=== PATIENT | female | born 1960 | race Caucasian/White ===

== ENCOUNTER 2021-04-22 08:45 | Inpatient (IN) | payer OTHER ==
[2021-04-22] MEDS ORDERED: morphine CARPU-JECT 4 MG/1 ML DISP.SYRIN IVPUSH ONE (09:36)
[2021-04-22] MEDS ORDERED: SODIUM CHLORIDE 0.9% 500 ML INFUS.BAG IV ONE (09:44)
[2021-04-22] MEDS ORDERED: morphine SULFATE 4 MG/ML VIAL ONE ×2 (09:44→15:16)
[2021-04-22 10:16] LABS: BASO % 2.4 % (0-2.0); EOS % 0.1 % (0-4.5); HEMATOCRIT 42.7 % (32.4-45.2); HEMOGLOBIN 14.1 GM/dl (10.7-15.3); LYMPH % 5.5 % (8-40); MCH 29.7 pg (25.7-33.7); MCHC 33.2 g/dl (32.0-36.0); MEAN CELL VOLUME 89.6 fl (80-96); MEAN PLT VOLUME 7.9 fl (7.5-11.1); MONO % 5.4 % (3.8-10.2); NEUT % 86.6 % (42.8-82.8); PLATELET COUNT 254 10^3/uL (134-434); RBC 4.76 M/mm3 (3.60-5.2); RDW 12.4 % (11.6-15.6); WHITE BLOOD COUNT 13.8 K/mm3 (4.0-10.8)
[2021-04-22 10:22] LABS: ALBUMIN 3.9 g/dl (3.4-5.0); BILIRUBIN,TOTAL 1.5 mg/dl (0.2-1); CREATININE 0.8 mg/dl (0.55-1.3); MAGNESIUM 1.5 mg/dL (1.8-2.4); TOT PROT 7.5 g/dl (6.4-8.2)
[2021-04-22] MEDS ORDERED: ACETAMINOPHEN 1000 MG/100 ML VIAL IVPB ONE ×2 (10:26→18:38)
[2021-04-22] MEDS ORDERED: ACETAMINOPHEN INJECTION 100 ML IVPB ONE ×2 (10:27→18:43)
[2021-04-22 10:44] LABS: ACTIVATED PTT 29.3 SECONDS (25.2-36.5)
[2021-04-22 10:49] LABS: INR 1.23 (0.82-1.09); PROTHROMBIN TIME (PATIENT) 13.8 SEC (10.2-13.0)
[2021-04-22] MEDS ORDERED: PIPERACILLIN/TAZOB 4.5 GM 4.5 GM in DEXTROSE 5%-WATER 100 ML IVPB ONE (11:59)
[2021-04-22] MEDS ORDERED: PIPERACILLIN/TAZOBACTAM 4.5 GM VIAL IVPB ONE (12:04)
[2021-04-22] MEDS ORDERED: MAGNESIUM 1GM/D5W - 1 GM/100 ML IVPB IVPB ONE (12:04)
[2021-04-22] MEDS ORDERED: rOPINIRole HCL 1 MG TABLET (FP) PO ONE (13:38)
[2021-04-22] MEDS ORDERED: morphine CARPU-JECT 2 MG/1 ML DISP.SYRIN IVPUSH ONE (15:08)
[2021-04-22] MEDS: DEXTROSE 5%-0.45% SALINE 1,000 ML IV SCH (16:53)
[2021-04-22] MEDS ORDERED: PIPERACILLIN/TAZOB 3.375 GM 3.375 GM in DEXTROSE 5%-WATER - 50 ML IVPB SCH (18:00)
[2021-04-22] MEDS ORDERED: PIPERACILLIN/TAZOBACTAM 3.375 GM VIAL IVPB ONE (18:41)
[2021-04-22] MEDS: PIPERACILLIN/TAZOB 3.375 GM 3.375 GM in DEXTROSE 5%-WATER - 50 ML IVPB SCH (18:57)
[2021-04-23 00:08] VITALS: BMI 31.3
[2021-04-23] MEDS: DEXTROSE 5%-0.45% SALINE 1,000 ML IV SCH ×2 (00:27→20:08)
[2021-04-23] MEDS ORDERED: ACETAMINOPHEN 1000 MG/100 ML VIAL IVPB ONE (00:42)
[2021-04-23] MEDS ORDERED: PIPERACILLIN/TAZOBACTAM 3.375 GM VIAL IVPB ONE ×3 (00:53→17:02)
[2021-04-23] MEDS ORDERED: DEXTROSE 5%-WATER - 50 ML IVPB ONE ×3 (00:54→17:02)
[2021-04-23] MEDS: PIPERACILLIN/TAZOB 3.375 GM 3.375 GM in DEXTROSE 5%-WATER - 50 ML IVPB SCH ×3 (00:59→17:08)
[2021-04-23] MEDS ORDERED: rOPINIRole HCL 3 MG TABLET PO ONE (02:53)
[2021-04-23] MEDS ORDERED: morphine SULFATE 4 MG/ML VIAL IVPUSH PRN (07:54)
[2021-04-23 08:50] LABS: BASO % 0.3 % (0-2.0); EOS % 0.8 % (0-4.5); HEMATOCRIT 36.7 % (32.4-45.2); HEMOGLOBIN 12.6 GM/dL (10.7-15.3); LYMPH % 5.1 % (8-40); MCH 29.9 pg (25.7-33.7); MCHC 34.3 g/dl (32.0-36.0); MEAN CELL VOLUME 86.9 fl (80-96); MEAN PLT VOLUME 7.5 fl (7.5-11.1); MONO % 5.7 % (3.8-10.2); NEUT % 88.1 % (42.8-82.8); PLATELET COUNT 198 10^3/uL (134-434); RBC 4.22 M/mm3 (3.60-5.2); WHITE BLOOD COUNT 15.4 K/mm3 (4.0-10.0)
[2021-04-23 08:56] LABS: INR 1.56 (0.83-1.09); PROTHROMBIN TIME (PATIENT) 17.5 SEC (9.7-13.0)
[2021-04-23 09:19] LABS: CALCIUM 7.6 mg/dL (8.5-10.1)
[2021-04-23 09:20] LABS: BLOOD UREA NITROGEN 9.8 mg/dL (7-18); MAGNESIUM 1.7 mg/dL (1.8-2.4)
[2021-04-23 09:22] LABS: CREATININE 0.6 mg/dL (0.55-1.3)
[2021-04-23 09:24] LABS: BILIRUBIN,TOTAL 1.3 mg/dL (0.2-1); TOT PROT 6.2 g/dl (6.4-8.2)
[2021-04-23 09:33] LABS: ALBUMIN 2.6 g/dl (3.4-5.0)
[2021-04-23] MEDS: ONDANSETRON 4 MG/2 ML VIAL IVPUSH PRN (09:58)
[2021-04-23] MEDS ORDERED: HEPARIN NA (PORCINE) 5,000 UNITS/ML 1ML VIAL SQ SCH (10:00)
[2021-04-23] MEDS ORDERED: MAGNESIUM SULF 50% (8.12 MEQ/2 ML-1 GM VIAL) IVPB ONE ×2 (10:30→18:30)
[2021-04-23] MEDS: KCL 10 MEQ IVPB 10 MEQ/100 ML INFUS.BAG IVPB SCH ×3 (10:34→17:09)
[2021-04-23] MEDS ORDERED: INDOMETHACIN 50 MG RECTAL SUPPOSITORY PR ONE (11:00)
[2021-04-23] MEDS ORDERED: MIDAZOLAM HCL 2 MG/2 ML SINGLE DOSE VIAL ONE (13:22)
[2021-04-23] MEDS ORDERED: IOHEXOL 300 MG/ML INFUS..BTL IJ ONE (13:50)
[2021-04-23] MEDS: GABAPENTIN 300 MG CAPSULE PO SCH ×2 (14:12→21:47)
[2021-04-23] MEDS ORDERED: LACTATED RINGERS SOLUTION 1,000 ML/1,000 ML INFUS.BAG IV SCH ×2 (14:30→23:00)
[2021-04-23] MEDS ORDERED: POTASSIUM CHLORIDE ORAL LIQUID 20 MEQ/15 ML PO ONE (16:03)
[2021-04-23] MEDS ORDERED: DEXMEDETOMIDINE HCL 200 MCG/2 ML IVPB ONE (16:38)
[2021-04-23] MEDS: HYDROCHLOROTHIAZIDE 25 MG TABLET (FP) PO SCH (17:08)
[2021-04-23] MEDS: GABAPENTIN 100 MG CAPSULE PO SCH (21:47)
[2021-04-23] MEDS ORDERED: rOPINIRole HCL 1 MG TABLET (FP) PO SCH (22:00)
[2021-04-23] MEDS: ROPINIROLE PO SCH (23:44)
[2021-04-24] MEDS ORDERED: PIPERACILLIN/TAZOBACTAM 3.375 GM VIAL IVPB ONE ×3 (00:53→17:08)
[2021-04-24] MEDS ORDERED: DEXTROSE 5%-WATER - 50 ML IVPB ONE ×3 (00:53→17:08)
[2021-04-24] MEDS: PIPERACILLIN/TAZOB 3.375 GM 3.375 GM in DEXTROSE 5%-WATER - 50 ML IVPB SCH ×3 (01:00→17:10)
[2021-04-24] MEDS: GABAPENTIN 300 MG CAPSULE PO SCH ×3 (05:47→21:35)
[2021-04-24] MEDS ORDERED: LACTATED RINGERS SOLUTION 1,000 ML/1,000 ML INFUS.BAG IV SCH (06:00)
[2021-04-24 08:44] LABS: BASO % 0.3 % (0-2.0); HEMATOCRIT 31.5 % (32.4-45.2); HEMOGLOBIN 10.8 GM/dL (10.7-15.3); LYMPH % 16.6 % (8-40); MCH 30.2 pg (25.7-33.7); MCHC 34.2 g/dl (32.0-36.0); MEAN CELL VOLUME 88.3 fl (80-96); MEAN PLT VOLUME 7.9 fl (7.5-11.1); MONO % 5.6 % (3.8-10.2); NEUT % 74.5 % (42.8-82.8); PLATELET COUNT 183 10^3/uL (134-434); RBC 3.57 M/mm3 (3.60-5.2); WHITE BLOOD COUNT 9.1 K/mm3 (4.0-10.0)
[2021-04-24 09:09] LABS: CHOLESTEROL 171 mg/dL (50-200)
[2021-04-24 09:10] LABS: LDL CHOLESTEROL (ONLY SJRH) 98 mg/dL (5-100); TRIGLYCERIDES 132 mg/dL (0-150)
[2021-04-24 09:12] LABS: HDL CHOLESTEROL 35 mg/dL (40-60)
[2021-04-24] MEDS: HYDROCHLOROTHIAZIDE 25 MG TABLET (FP) PO SCH (09:13)
[2021-04-24 09:16] LABS: MAGNESIUM 1.8 mg/dL (1.8-2.4)
[2021-04-24 09:18] LABS: CALCIUM 7.9 mg/dL (8.5-10.1)
[2021-04-24 09:19] LABS: ALBUMIN 2.3 g/dl (3.4-5.0); BLOOD UREA NITROGEN 8.6 mg/dL (7-18)
[2021-04-24 09:22] LABS: BILIRUBIN,TOTAL 0.8 mg/dL (0.2-1); CREATININE 0.6 mg/dL (0.55-1.3); TOT PROT 5.4 g/dl (6.4-8.2)
[2021-04-24] MEDS ORDERED: ALBUTEROL SO4 HFA INHALER IH PRN (12:00)
[2021-04-24] MEDS: LACTATED RINGERS SOLUTION 1,000 ML/1,000 ML INFUS.BAG IV SCH ×2 (17:10→23:18)
[2021-04-24] MEDS: DEXTROSE 5%-0.45% SALINE 1,000 ML IV SCH (17:11)
[2021-04-24] MEDS: GABAPENTIN 100 MG CAPSULE PO SCH (21:35)
[2021-04-24] MEDS: ROPINIROLE PO SCH (21:37)
[2021-04-25] MEDS ORDERED: DEXTROSE 5%-WATER - 50 ML IVPB ONE ×3 (01:48→17:43)
[2021-04-25] MEDS ORDERED: PIPERACILLIN/TAZOBACTAM 3.375 GM VIAL IVPB ONE ×3 (01:48→17:43)
[2021-04-25] MEDS: PIPERACILLIN/TAZOB 3.375 GM 3.375 GM in DEXTROSE 5%-WATER - 50 ML IVPB SCH ×3 (01:51→18:14)
[2021-04-25] MEDS: ONDANSETRON 4 MG/2 ML VIAL IVPUSH PRN (01:53)
[2021-04-25] MEDS: GABAPENTIN 300 MG CAPSULE PO SCH ×3 (05:33→21:14)
[2021-04-25] MEDS: LACTATED RINGERS SOLUTION 1,000 ML/1,000 ML INFUS.BAG IV SCH ×2 (06:48→13:20)
[2021-04-25 08:30] LABS: BASO % 0.5 % (0-2.0); EOS % 4.4 % (0-4.5); HEMATOCRIT 29.4 % (32.4-45.2); HEMOGLOBIN 10.3 GM/dL (10.7-15.3); LYMPH % 20.8 % (8-40); MCH 30.5 pg (25.7-33.7); MCHC 34.9 g/dl (32.0-36.0); MEAN CELL VOLUME 87.5 fl (80-96); MEAN PLT VOLUME 7.8 fl (7.5-11.1); MONO % 7.3 % (3.8-10.2); PLATELET COUNT 191 10^3/uL (134-434); RBC 3.36 M/mm3 (3.60-5.2); RDW 12.5 % (11.6-15.6); WHITE BLOOD COUNT 6.7 K/mm3 (4.0-10.0)
[2021-04-25 08:55] LABS: ALBUMIN 2.1 g/dl (3.4-5.0); BLOOD UREA NITROGEN 5.1 mg/dL (7-18); CALCIUM 7.8 mg/dL (8.5-10.1)
[2021-04-25 08:59] LABS: CREATININE 0.6 mg/dL (0.55-1.3)
[2021-04-25 09:00] LABS: BILIRUBIN,TOTAL 0.6 mg/dL (0.2-1); TOT PROT 5.4 g/dl (6.4-8.2)
[2021-04-25] MEDS: HYDROCHLOROTHIAZIDE 25 MG TABLET (FP) PO SCH (09:24)
[2021-04-25] MEDS: DEXTROSE 5%-0.45% SALINE 1,000 ML IV SCH (15:36)
[2021-04-25] MEDS: METOCLOPRAMIDE HCL 10 MG TABLET (FP) PO SCH (18:13)
[2021-04-25] MEDS: PANTOPRAZOLE 40 MG TABLET PO SCH (18:14)
[2021-04-25] MEDS ORDERED: ACETAMINOPHEN 325 MG TABLET (FP) PO ONE (20:54)
[2021-04-25] MEDS ORDERED: PT OWN MED DRAWER 7, Y5N ONE (21:10)
[2021-04-25] MEDS: ROPINIROLE PO SCH (21:14)
[2021-04-25] MEDS: GABAPENTIN 100 MG CAPSULE PO SCH (21:14)
[2021-04-25 21:58] LABS: BASO % 0.6 % (0-2.0); HEMATOCRIT 32.7 % (32.4-45.2); HEMOGLOBIN 11.2 GM/dL (10.7-15.3); MCH 30.2 pg (25.7-33.7); MCHC 34.4 g/dl (32.0-36.0); MEAN CELL VOLUME 87.8 fl (80-96); MEAN PLT VOLUME 7.6 fl (7.5-11.1); MONO % 7.8 % (3.8-10.2); NEUT % 73.6 % (42.8-82.8); PLATELET COUNT 227 10^3/uL (134-434); RBC 3.72 M/mm3 (3.60-5.2); RDW 12.8 % (11.6-15.6); WHITE BLOOD COUNT 9.3 K/mm3 (4.0-10.0)
[2021-04-26] MEDS ORDERED: DEXTROSE 5%-WATER - 50 ML IVPB ONE ×2 (01:15→09:00)
[2021-04-26] MEDS ORDERED: PIPERACILLIN/TAZOBACTAM 3.375 GM VIAL IVPB ONE ×4 (01:15→19:15)
[2021-04-26] MEDS: PIPERACILLIN/TAZOB 3.375 GM 3.375 GM in DEXTROSE 5%-WATER - 50 ML IVPB SCH ×3 (01:30→21:23)
[2021-04-26] MEDS: GABAPENTIN 300 MG CAPSULE PO SCH ×3 (06:09→21:23)
[2021-04-26] MEDS: METOCLOPRAMIDE HCL 10 MG TABLET (FP) PO SCH (06:10)
[2021-04-26] MEDS: rOPINIRole HCL 1 MG TABLET (FP) PO SCH ×2 (07:10→07:15)
[2021-04-26] MEDS: PANTOPRAZOLE 40 MG TABLET PO SCH (09:04)
[2021-04-26] MEDS: HYDROCHLOROTHIAZIDE 25 MG TABLET (FP) PO SCH (09:04)
[2021-04-26 09:53] LABS: BASO % 0.5 % (0-2.0); EOS % 3.2 % (0-4.5); HEMATOCRIT 31.9 % (32.4-45.2); HEMOGLOBIN 11.1 GM/dL (10.7-15.3); LYMPH % 16.2 % (8-40); MCH 30.7 pg (25.7-33.7); MCHC 34.7 g/dl (32.0-36.0); MEAN CELL VOLUME 88.3 fl (80-96); MEAN PLT VOLUME 7.4 fl (7.5-11.1); NEUT % 71.1 % (42.8-82.8); PLATELET COUNT 230 10^3/uL (134-434); RBC 3.61 M/mm3 (3.60-5.2); RDW 12.8 % (11.6-15.6); WHITE BLOOD COUNT 8.1 K/mm3 (4.0-10.0)
[2021-04-26 10:11] LABS: ALBUMIN 2.3 g/dl (3.4-5.0); BLOOD UREA NITROGEN 5.1 mg/dL (7-18); CALCIUM 7.9 mg/dL (8.5-10.1)
[2021-04-26 10:14] LABS: CREATININE 0.7 mg/dL (0.55-1.3)
[2021-04-26 10:15] LABS: BILIRUBIN,TOTAL 0.6 mg/dL (0.2-1); TOT PROT 5.9 g/dl (6.4-8.2)
[2021-04-26 12:58] LABS: INR 1.15 (0.83-1.09); PROTHROMBIN TIME (PATIENT) 13.5 SEC (9.7-13.0)
[2021-04-26 13:33] LABS: ALBUMIN 2.5 g/dl (3.4-5.0); BLOOD UREA NITROGEN 5.4 mg/dL (7-18); CALCIUM 8.6 mg/dL (8.5-10.1)
[2021-04-26 13:36] LABS: CREATININE 0.8 mg/dL (0.55-1.3)
[2021-04-26 13:38] LABS: BILIRUBIN,TOTAL 0.7 mg/dL (0.2-1); TOT PROT 6.4 g/dl (6.4-8.2)
[2021-04-26] MEDS: LACTATED RINGERS SOLUTION 1,000 ML/1,000 ML INFUS.BAG IV SCH (14:24)
[2021-04-26] MEDS ORDERED: PROPOFOL 20 ML ONE (14:44)
[2021-04-26] MEDS ORDERED: MIDAZOLAM HCL 2 MG/2 ML SINGLE DOSE VIAL ONE (14:45)
[2021-04-26] MEDS ORDERED: ROCURONIUM BROMIDE 50 MG/5 ML SYRINGE ONE (14:45)
[2021-04-26] MEDS ORDERED: KETOROLAC TROMETHAMINE 30 MG/1 ML VIAL ONE (15:11)
[2021-04-26] MEDS ORDERED: LIDOCAINE HCL/PF 2% SDV 5ML VIAL ONE (15:11)
[2021-04-26] MEDS ORDERED: DEXAMETHASONE SOD PHOSPHATE 4 MG/1 ML VIAL ONE (15:11)
[2021-04-26] MEDS ORDERED: BUPIVACAINE HCL/PF 0.5% (5MG/ML) 10 ML VIAL IJ ONE ×2 (15:22)
[2021-04-26] MEDS ORDERED: BUPIVACAINE HCL/PF 0.5% (5MG/ML) 10 ML VIAL ONE (15:29)
[2021-04-26] MEDS ORDERED: NEOSTIGMINE METHYLSULFATE 0.5 MG/ML - 10 ML MDV ONE (16:52)
[2021-04-26] MEDS ORDERED: GLYCOPYRROLATE 0.2 MG/1 ML VIAL ONE (16:53)
[2021-04-26] MEDS ORDERED: ACETAMINOPHEN 1000 MG/100 ML VIAL IVPB ONE (17:13)
[2021-04-26] MEDS ORDERED: ONDANSETRON 4 MG/2 ML VIAL IVPUSH PRN ×2 (17:14→18:02)
[2021-04-26] MEDS ORDERED: LACTATED RINGERS SOLUTION 1,000 ML IV SCH (17:15)
[2021-04-26] MEDS ORDERED: ONDANSETRON 4 MG/2 ML VIAL ONE (17:50)
[2021-04-26] MEDS ORDERED: LACTATED RINGERS SOLUTION 1,000 ML/1,000 ML INFUS.BAG IV SCH (17:53)
[2021-04-26] MEDS ORDERED: oxyCODONE HCL 5 MG TABLET PO PRN (17:58)
[2021-04-26] MEDS ORDERED: ALBUTEROL SO4 HFA INHALER IH PRN (18:02)
[2021-04-26] MEDS ORDERED: PT OWN MED DRAWER 7, Y5N ONE (21:17)
[2021-04-26] MEDS: GABAPENTIN 100 MG CAPSULE PO SCH (21:22)
[2021-04-26] MEDS: ROPINIROLE PO SCH (21:23)
[2021-04-27] MEDS ORDERED: PIPERACILLIN/TAZOBACTAM 3.375 GM VIAL IVPB ONE ×3 (01:21→17:31)
[2021-04-27] MEDS: ACETAMINOPHEN 1000 MG/100 ML VIAL IVPB SCH ×2 (01:37→09:47)
[2021-04-27] MEDS: PIPERACILLIN/TAZOB 3.375 GM 3.375 GM in DEXTROSE 5%-WATER - 50 ML IVPB SCH ×3 (01:38→18:21)
[2021-04-27] MEDS: GABAPENTIN 300 MG CAPSULE PO SCH ×3 (06:13→22:28)
[2021-04-27] MEDS ORDERED: rOPINIRole HCL 1 MG TABLET (FP) PO SCH (07:00)
[2021-04-27 09:10] LABS: BASO % 0.3 % (0-2.0); EOS % 0.5 % (0-4.5); HEMATOCRIT 30.5 % (32.4-45.2); HEMOGLOBIN 10.6 GM/dL (10.7-15.3); MCH 30.6 pg (25.7-33.7); MCHC 34.8 g/dl (32.0-36.0); MEAN CELL VOLUME 88.1 fl (80-96); MEAN PLT VOLUME 7.5 fl (7.5-11.1); MONO % 7.8 % (3.8-10.2); NEUT % 77.4 % (42.8-82.8); PLATELET COUNT 234 10^3/uL (134-434); RBC 3.47 M/mm3 (3.60-5.2); RDW 12.5 % (11.6-15.6); WHITE BLOOD COUNT 9.1 K/mm3 (4.0-10.0)
[2021-04-27 09:36] LABS: ALBUMIN 2.2 g/dl (3.4-5.0)
[2021-04-27 09:38] LABS: BLOOD UREA NITROGEN 10.7 mg/dL (7-18)
[2021-04-27 09:39] LABS: CALCIUM 7.6 mg/dL (8.5-10.1)
[2021-04-27 09:40] LABS: CREATININE 0.8 mg/dL (0.55-1.3)
[2021-04-27 09:41] LABS: BILIRUBIN,TOTAL 0.8 mg/dL (0.2-1)
[2021-04-27] MEDS ORDERED: DEXTROSE 5%-WATER - 50 ML IVPB ONE ×2 (09:42→17:31)
[2021-04-27 09:43] LABS: TOT PROT 5.6 g/dl (6.4-8.2)
[2021-04-27] MEDS: HYDROCHLOROTHIAZIDE 25 MG TABLET (FP) PO SCH (09:50)
[2021-04-27] MEDS: PANTOPRAZOLE 40 MG TABLET PO SCH (09:50)
[2021-04-27] MEDS ORDERED: ZOLPIDEM TARTRATE 5 MG TABLET PO PRN (15:35)
[2021-04-27] MEDS ORDERED: ACETAMINOPHEN 500 MG TABLET (FP) PO SCH (16:00)
[2021-04-27] MEDS: ACETAMINOPHEN 1000 MG/100 ML VIAL IVPB PRN (17:33)
[2021-04-27] MEDS ORDERED: PT OWN MED DRAWER 7, Y5N ONE (22:23)
[2021-04-27] MEDS: GABAPENTIN 100 MG CAPSULE PO SCH (22:28)
[2021-04-27] MEDS: ROPINIROLE PO SCH (22:28)
[2021-04-28] MEDS ORDERED: DEXTROSE 5%-WATER - 50 ML IVPB ONE ×2 (01:12→09:04)
[2021-04-28] MEDS ORDERED: PIPERACILLIN/TAZOBACTAM 3.375 GM VIAL IVPB ONE ×2 (01:12→09:04)
[2021-04-28] MEDS: PIPERACILLIN/TAZOB 3.375 GM 3.375 GM in DEXTROSE 5%-WATER - 50 ML IVPB SCH ×2 (01:16→09:28)
[2021-04-28] MEDS: ACETAMINOPHEN 1000 MG/100 ML VIAL IVPB PRN (03:04)
[2021-04-28] MEDS: GABAPENTIN 300 MG CAPSULE PO SCH ×2 (06:37→14:20)
[2021-04-28 08:23] LABS: HEMATOCRIT 29.8 % (32.4-45.2); HEMOGLOBIN 10.3 GM/dL (10.7-15.3); MCH 30.1 pg (25.7-33.7); MCHC 34.6 g/dl (32.0-36.0); MEAN CELL VOLUME 87.1 fl (80-96); MEAN PLT VOLUME 6.8 fl (7.5-11.1); PLATELET COUNT 255 10^3/uL (134-434); RBC 3.43 M/mm3 (3.60-5.2); RDW 12.8 % (11.6-15.6); WHITE BLOOD COUNT 8.8 K/mm3 (4.0-10.0)
[2021-04-28 09:05] LABS: CALCIUM 8.1 mg/dL (8.5-10.1)
[2021-04-28 09:09] LABS: CREATININE 0.6 mg/dL (0.55-1.3)
[2021-04-28 09:11] LABS: BILIRUBIN,TOTAL 0.6 mg/dL (0.2-1); TOT PROT 5.4 g/dl (6.4-8.2)
[2021-04-28] MEDS: HYDROCHLOROTHIAZIDE 25 MG TABLET (FP) PO SCH (09:28)
[2021-04-28] MEDS: PANTOPRAZOLE 40 MG TABLET PO SCH (09:28)
[2021-04-28 14:43] VITALS: PULSE 69; TEMP 98.8
[2021-04-28 14:45] VITALS: BP 131/69
== END 2021-04-28 18:52 | disposition home or self-care (01) | DRG 854 ==
LOC: FER 08:45 → J6S 22:45
PROVIDERS: ADMIT Internal Medicine; ATTEND Internal Medicine
PROC: 0FC98ZZ Extirpation of Matter from Common Bile Duct, Via Natural or Artificial Opening Endoscopic (ICD-10-PCS; 2021-04-23)
PROC: BF10YZZ Fluoroscopy of Bile Ducts using Other Contrast (ICD-10-PCS; 2021-04-23)
PROC: 0FT44ZZ Resection of Gallbladder, Percutaneous Endoscopic Approach (ICD-10-PCS; principal; 2021-04-26 12:00)
DX: A41.9 Sepsis, unspecified organism (principal); K80.12 Calculus of gallbladder with acute and chronic cholecystitis without obstruction; I10 Essential (primary) hypertension; R74.01 Elevation of levels of liver transaminase levels; D72.829 Elevated white blood cell count, unspecified; J45.909 Unspecified asthma, uncomplicated; K21.9 Gastro-esophageal reflux disease without esophagitis; R11.2 Nausea with vomiting, unspecified; E66.9 Obesity, unspecified; Z68.31 Body mass index [BMI] 31.0-31.9, adult; G25.81 Restless legs syndrome; E11.40 Type 2 diabetes mellitus with diabetic neuropathy, unspecified
CPT/HCPCS: 36415; 71045-TC-FY; 76000-TC-FY; 76705-TC; 80053; 80061; 82150; 82962; 83036; 83690; 83735; 84100; 85025; 85027; 85610; 85730; 86140; 86850; 86900; 86901; 87040; 87070; 87075; 87086; 87205; 88304-TC; 93005; 94760; 99285-25; C9803; J0131; U0003; U0005

== ENCOUNTER 2023-06-23 18:49 | Emergency (ER) | payer OTHER ==
[2023-06-23 19:01] VITALS: BMI 35.2
[2023-06-23 19:25] LABS: HEMATOCRIT 44.4 % (32.4-45.2); HEMOGLOBIN 14.7 G/dL (10.7-15.3); MCH 29.7 pg (25.7-33.7); MCHC 33.1 g/dl (32.0-36.0); MEAN CELL VOLUME 89.6 fl (80-96); MEAN PLT VOLUME 7.6 fl (7.5-11.1); PLATELET COUNT 280.1 10^3/uL (134-434); RBC 4.95 10^6/uL (3.60-5.2); RDW 13.8 % (11.6-15.6); WHITE BLOOD COUNT 9.1 10^3/uL (4.0-10.8)
[2023-06-23 19:45] LABS: ALBUMIN 4.7 g/dl (3.4-5.0); BILIRUBIN,TOTAL 0.5 mg/dl (0.2-1); CALCIUM 9.6 mg/dl (8.5-10.1); CREATININE 0.7 mg/dl (0.6-1.3); TOT PROT 7.6 g/dl (6.4-8.2)
[2023-06-23 19:55] LABS: PLATELET ESTIMATE ADEQUATE
[2023-06-23] MEDS ORDERED: ASPIRIN 81 MG CHEWABLE TABLETS PO ONE (20:18)
[2023-06-23] MEDS ORDERED: ASPIRIN 81 MG CHEWABLE TABLETS ONE (20:19)
[2023-06-23] MEDS ORDERED: VALSARTAN 80 MG TABLET PO ONE (20:24)
[2023-06-23] MEDS ORDERED: ENOXAPARIN NA (PORCINE) 80 MG/0.8 ML DISP.SYRIN SQ ONE (20:24)
[2023-06-23] MEDS ORDERED: CLOPIDOGREL BISULFATE 300 MG TABLET PO ONE (20:24)
[2023-06-23] MEDS ORDERED: ENOXAPARIN NA (PORCINE) 100 MG/1 ML DISP.SYRIN SQ ONE (20:26)
[2023-06-23] MEDS ORDERED: CLOPIDOGREL BISULFATE 300 MG TABLET ONE (20:26)
[2023-06-23] MEDS ORDERED: NITROGLYCERIN SUBLINGUAL 1/150 0.4 MG TAB SL ONE (20:35)
[2023-06-23] MEDS ORDERED: NITROGLYCERIN SUBLINGUAL 1/150 0.4 MG TAB ONE (20:36)
[2023-06-23] MEDS ORDERED: ACETAMINOPHEN 500 MG TABLET (FP) PO ONE (20:36)
[2023-06-23] MEDS ORDERED: ACETAMINOPHEN 500 MG TABLET (FP) ONE (20:37)
[2023-06-24] MEDS ORDERED: ALBUTEROL SO4 HFA INHALER IH PRN (07:20)
[2023-06-24] MEDS ORDERED: ENOXAPARIN NA (PORCINE) 80 MG/0.8 ML DISP.SYRIN SQ SCH (08:30)
[2023-06-24] MEDS ORDERED: ENOXAPARIN NA (PORCINE) 100 MG/1 ML DISP.SYRIN SQ ONE (09:11)
[2023-06-24] MEDS ORDERED: ASPIRIN 81 MG CHEWABLE TABLETS ONE (09:11)
[2023-06-24] MEDS ORDERED: CLOPIDOGREL BISULFATE 75 MG TABLET (FP) ONE (09:11)
[2023-06-24 09:20] LABS: HEMATOCRIT 39.7 % (32.4-45.2); HEMOGLOBIN 13.2 G/dL (10.7-15.3); MCH 29.3 pg (25.7-33.7); MCHC 33.2 g/dl (32.0-36.0); MEAN CELL VOLUME 88.3 fl (80-96); MEAN PLT VOLUME 7.7 fl (7.5-11.1); PLATELET COUNT 282.3 10^3/uL (134-434); RDW 13.9 % (11.6-15.6); WHITE BLOOD COUNT 8.7 10^3/uL (4.0-10.8)
[2023-06-24 09:54] LABS: PLATELET ESTIMATE SLT INCREASE
[2023-06-24] MEDS ORDERED: CLOPIDOGREL BISULFATE 75 MG TABLET (FP) PO SCH (10:00)
[2023-06-24] MEDS ORDERED: ASPIRIN 81 MG CHEWABLE TABLETS PO SCH (10:00)
[2023-06-24 10:06] LABS: CREATININE 0.6 mg/dl (0.6-1.3)
[2023-06-24 10:07] LABS: ALBUMIN 4.1 g/dl (3.4-5.0); CALCIUM 9.1 mg/dl (8.5-10.1); MAGNESIUM 1.7 mg/dL (1.8-2.4); TOT PROT 6.6 g/dl (6.4-8.2)
[2023-06-24 10:08] LABS: BILIRUBIN,TOTAL 0.6 mg/dl (0.2-1)
[2023-06-24 18:06] VITALS: BP 138/64; PULSE 79; RESP 18; TEMP 98.6
[2023-06-24] MEDS ORDERED: ATORVASTATIN CA 40 MG TABLET (FP) PO SCH (22:00)
== END 2023-06-24 18:47 | disposition short-term general hospital (02) ==
LOC: FER 18:49
PROC: 3E023GC Introduction of Other Therapeutic Substance into Muscle, Percutaneous Approach (ICD-10-PCS; principal; 2023-06-23)
PROC: 3E023GC Introduction of Other Therapeutic Substance into Muscle, Percutaneous Approach (ICD-10-PCS; 2023-06-24)
DX: R07.9 Chest pain, unspecified (principal); I21.4 Non-ST elevation (NSTEMI) myocardial infarction; Z20.822 Contact with and (suspected) exposure to COVID-19
CPT/HCPCS: 0241U-QW; 36415; 71045-TC-FY; 80053; 80061; 83735; 84484; 85027; 93005; 99285-25